=== PATIENT | female | born 1955 | race American Indian/Alaskan Native ===

== ENCOUNTER 2018-07-16 14:12 | Emergency (ER) | payer BC ==
[2018-07-16 14:30] VITALS: BP 133/51
--- NOTE | 2018-07-16 14:30 | Emergency Department Report ---
Blank Doc - Documentation Documentation: This is a 63-year-old female that presents with left toe pain and swelling. D enies any injuries. This initial assessment/diagnostic orders/clinical plan/treatment(s) is/are subject to change based on patient's health status, clinical progression and re- assessment by fellow clinical providers in the ED. Further treatment and workup at subsequent clinical providers discretion. Patient/guardians urged not to elope from the ED as their condition may be serious if not clinically assessed and managed. Initial orders include: 1- Patient sent to MAIN for further evaluation and treatment
--- NOTE | 2018-07-16 18:01 | Emergency Department Report ---
HPI - General Chief Complaint: Extremity Problem,Nontraumatic Time Seen by Provider: 07/16/18 14:29 - HPI HPI: This is a 63-year-old female who presents to ED complaining of pain to her right big toe. Patient states she's had this hard ridge on her inner big toe distress and intermittent for the past year. Patient states that his become painful and she has pain on the surface of the medial aspect of her big toe. She denies any injury, trauma, to the foot or toes. She denies fever/chills/redness or any rash. ED Past Medical Hx - Past Medical History Previous Medical History?: No Hx Hypertension: No Hx Heart Attack/AMI: No Hx Congestive Heart Failure: No Hx GERD: No Hx Liver Disease: No Hx Sickle Cell Disease: No Hx Arthritis: No Hx Headaches / Migraines: No Hx Seizures: No Hx Kidney Stones: No - Surgical History Past Surgical History?: No - Social History Smoking Status: Current Every Day Smoker Substance Use Type: None - Medications Home Medications: Home Medications Medication Instructions Recorded Confirmed Last Taken Type traMADol [Ultram] 50 mg PO Q4HR PRN #20 tablet 07/27/14 Unknown Rx Lidocaine [Anecream5] 1 applic TP TID #1 tube 07/16/18 Unknown Rx Sod,Ammonium,Potassium Lactate 1 applic TP BID #1 tube 07/16/18 Unknown Rx [Amlactin Foot Cream] ED Review of Systems ROS: Stated complaint: TOE PAIN/INFECTED Other details as noted in HPI Comment: All other systems reviewed and negative Physical Exam - Physical Exam Vital Signs: Vital Signs 07/16/18 14:28 Temperature 97.9 F Pulse Rate 78 Respiratory 18 Rate Blood Pressure 133/51 O2 Sat by Pulse 99 Oximetry Physical Exam: GENERAL: Alert and oriented x3, no apparent distress, Normal Gait, atraumatic. HEAD: Head is normocephalic and a-traumatic. EXTREMITIES/MUSCULOSKELETAL: No cyanosis, clubbing, rash, lesions or edema. Full ROM bilaterally. LE Pulses 2+ bilaterally. LE 5+ strength bilaterally, straight leg raise negative bilaterally. Small 0.5 cm in diameter calculus located at th e medial aspect of the right toe. Mildly tender to palpation. No bleeding, no erythema to the toes. SKIN: Warm and dry, No lesions, No ulceration or induration present. ED Course Vital Signs 07/16/18 14:28 Temperature 97.9 F Pulse Rate 78 Respiratory 18 Rate Blood Pressure 133/51 O2 Sat by Pulse 99 Oximetry ED Medical Decision Making - Medical Decision Making 63-year-old female who presents with right big toe callus No other deformity seen. Discussed follow-up with buffet attendant. Critical care attestation.: If time is entered above; I have spent that time in minutes in the direct care of this critically ill patient, excluding procedure time. ED Disposition Clinical Impression: Toe pain, chronic, Callus of foot Disposition: - TO HOME OR SELFCARE Is pt being admited?: No Does the pt Need Aspirin: No Condition: Stable Instructions: Bunion (ED) Additional Instructions: Make sure to follow up with the primary care physician as discussed. You have been given buffet attendant referral Take all your medications as you've been prescribed. If you have any worsening symptoms or develop new symptoms please return to ED immediately. Prescriptions: Sod,Ammonium,Potassium Lactate [Amlactin Foot Cream] 1 applic TP BID #1 tube Lidocaine [Anecream5] 1 applic TP TID #1 tube Referrals: JAMES VICKERS MD [Primary Care Provider] - 3-5 Days [facility] [Provider Group] - 3-5 Days Forms: Accompanied Note, Work/School Release Form(ED) Time of Disposition: 18:31
== END 2018-07-16 18:39 | disposition home or self-care (01) ==
LOC: ED 14:12
DX: L84 Corns and callosities (principal); M79.674 Pain in right toe(s); G89.29 Other chronic pain; F17.200 Nicotine dependence, unspecified, uncomplicated
CPT/HCPCS: 99282